=== PATIENT | female | born 1950 | race Caucasian/White ===

== ENCOUNTER → 2016-11-25 | Day surgery (SDC) | payer BC, MEDICARE ==
[~2016-11-25] MED LIST: BUPIVACAINE/EPINEPHRINE 0.5% PF 30 ML VIAL ONE; CALC600T34 PO; DIPH1TAB36 PO; LACTATED RINGER'S 1000 ML INJ 1,000 ML ONE; MIDAZOLAM HCL 2 MG/2 ML VIAL ONE; ONDANSETRON HCL 4 MG/2 ML VIAL IV PUSH ONE; PROPOFOL 200 MG/20 ML AMP IV ONE; TRIAMCINOLONE ACETONIDE 40 MG/ML VIAL ONE; ceFAZolin INJ 1,000 MG VIAL ONE
--- NOTE | 2016-11-26 06:44 | MP ---
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 SURGEON Dr. Eber Helms SPLICING SUPERVISOR ELSA Lyles The surgical procedure was assisted by my Advanced Registered Nurse Practitioner. My MENTAL HEALTH AIDES TEACHER presence was necessary throughout this case for the manipulation and positioning of the surgical extremity. My MENTAL HEALTH AIDES TEACHER was assisting me throughout the duration of this procedure. The skill set of an Advanced Registered Nurse Practitioner was medically necessary to complete this procedure. During the surgical case, the salesperson surgical appliances was working at the back table and the Advanced Registered Nurse Practitioner was directly assisting me. PROCEDURE Left knee arthroscopy with partial medial and lateral meniscectomies with chondroplasty of the medial femoral condyle and lateral femoral condyle. ESTIMATED BLOOD LOSS Minimal. TOURNIQUET TIME Zero minutes. ANESTHESIA General. DETAILS OF PROCEDURE The patient was brought back to the operative theatre. General anesthesia was administered. She received intravenous Ancef. The left lower extremity was prepped and draped in the usual sterile fashion. We started with a standard inferolateral portal followed by an inferomedial portal under spinal needle visualization. There was severe synovitis in the suprapatellar pouch. 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 I did not see significant unstable segments of cartilage that required chondroplasty. The medial compartment revealed a complex tear of the medial meniscus involving essentially the entire body and part of the posterior horn. As I got into the posterior horn this was more of a cleavage in nature but the top portion of the meniscus had been macerated and the lower portion remained intact. There was some displaced fragments of the meniscus at the junction of the body and the posterior horn on the superior aspect. We used a combination of meniscal biters and oscillating nilam to perform a partial medial meniscectomy. Approximately 50% of the meniscus was removed with this. We probed and there were no unstable segments of meniscus. A chondroplasty of the medial femoral condyle was required for small to moderate size areas of grade III chondromalacia. The anterior cruciate ligament was found to be intact. The lateral compartment was found to have inner edge tearing of the anterior horn of the lateral meniscus and used an oscillating shaver to debride this. There was deep grade III chondromalacia changes in the central portion of the lateral femoral condyle with multiple areas of unstable segments of cartilage. We used an oscillating shaver to smooth these down. Ultimately this was moderate to large size. There were no loose bodies in the medial or lateral gutters. An intraarticular injection of 0.25% Marcaine with epinephrine was given with 40 mg of Kenalog. The arthroscopic portals were closed with 2-0 Vicryl followed by 3-0 nylon. The leg was dressed. The postoperative plan is weight bear as tolerated and early range of motion. MD DUNIA Jang/BT /3:40 PM /6:26 AM
== END | disposition home or self-care (01) ==
LOC: ESDC 13:18
PROVIDERS: ATTEND Orthopaedic Surgery
DX: S83.232A Complex tear of medial meniscus, current injury, left knee, initial encounter (principal); S83.282A Other tear of lateral meniscus, current injury, left knee, initial encounter; M94.262 Chondromalacia, left knee
CPT/HCPCS: 01400; 29880; J0690; J2250; J2405; J3010; J3301; J7120